=== PATIENT | female | born 1930 | race Caucasian/White ===

== ENCOUNTER 2018-02-06 09:53 | Emergency (ER) | payer MEDICARE, MEDICAID ==
[~2018-02-06] VITALS: Ht 139.7 cm; Wt 64.8 kg
[~2018-02-06 09:53] MED LIST: CARVEDILOL; LIPITOR; LOSARTAN; PLAVIX; RENAGEL
[2018-02-06 10:20] VITALS: BP 166/93
== END 2018-02-06 14:26 | disposition left against medical advice (07) ==
LOC: ER 10:38
DX: Z53.21 Procedure and treatment not carried out due to patient leaving prior to being seen by health care provider (principal)

== ENCOUNTER 2018-02-26 12:51 | Inpatient (IN) | payer MEDICARE, MEDICAID ==
[~2018-02-26] VITALS: Ht 139.7 cm; Wt 31.4 kg
[2018-02-26 13:30] LABS: BASOPHILS % 0.8 % (0.0-2.0); EOSINOPHILS % 1.4 % (0.0-5.0); HEMATOCRIT. 29.7 % (36.0-48.0); HEMOGLOBIN. 9.8 g/dL (12.0-16.0); LYMPHOCYTES % 12.9 % (20.0-50.0); MEAN CORPUSCULAR HEMOGLOBIN 32.8 pg (28.0-32.0); MEAN CORPUSCULAR VOLUME 99.6 fL (81.0-99.0); MEAN PLATELET VOLUME 8.1 fl (7.4-10.4); MONOCYTES % 5.1 % (2.0-8.0); NEUTROPHILS % 79.8 % (40.0-76.0); PLATELET 205 x1000/uL (130-400); RED BLOOD CELL COUNT 2.98 mill/uL (4.2-5.4); RED CELL DISTRIBUTION WIDTH 16.9 % (11.6-14.6)
[2018-02-26 13:38] LABS: CHLORIDE 97 mEq/L (98-107); INR 1.2; PROTHROMBIN TIME 12.7 sec (9.4-11.6)
[2018-02-26 17:00] VITALS: BP 158/72
[2018-02-26] MEDS ORDERED: APIX2.5T PO (17:13)
[2018-02-26] MEDS ORDERED: ASPI-1159 PO (17:13)
[2018-02-26] MEDS ORDERED: LOSA25TA12 PO (17:13)
[2018-02-26 17:23] VITALS: BP 158/72
[2018-02-26] MEDS ORDERED: ZOLPIDEM TARTRATE 5MG TABLET PO PRN (18:15)
[2018-02-26] MEDS ORDERED: MAGNESIUM/ALUMINUM HYDROXIDE/SIMETHICONE 30ML UDC PO PRN (18:15)
[2018-02-26] MEDS ORDERED: MAGNESIUM HYDROXIDE 400MG/5ML 30ML UDC PO PRN (18:15)
[2018-02-26] MEDS ORDERED: CLONIDINE 0.1MG TABLET PO PRN (18:15)
[2018-02-26] MEDS ORDERED: ACETAMINOPHEN 325MG TABLET PO PRN (18:15)
[2018-02-26] MEDS ORDERED: DIPHENHYDRAMINE 50MG/ML VIAL IV PRN (18:15)
[2018-02-26] MEDS ORDERED: ONDANSETRON 4MG ODT PO PRN (18:31)
[2018-02-26 19:58] VITALS: BP 167/68
[2018-02-26] MEDS: SODIUM CHLORIDE 0.9% INJ 3ML FLUSH IVF SCH (20:58)
[2018-02-26] MEDS ORDERED: DIGOXIN 500MCG/2ML AMP IV NR (23:30)
[2018-02-27 00:07] VITALS: BP 116/65
[2018-02-27 04:00] VITALS: BP 150/53
[2018-02-27] MEDS: SODIUM CHLORIDE 0.9% INJ 3ML FLUSH IVF SCH ×2 (05:34→21:36)
[2018-02-27 08:00] VITALS: BP 166/64
[2018-02-27] MEDS: ASPIRIN 81MG EC TABLET PO SCH (08:34)
[2018-02-27] MEDS: LOSARTAN POTASSIUM 25 MG TABLET PO SCH (08:34)
[2018-02-27] MEDS: APIXABAN 2.5 MG TABLET PO SCH ×2 (08:34→17:18)
[2018-02-27 10:21] LABS: T4 FREE 1.58 ng/dL (0.76-1.46)
[2018-02-27 16:00] VITALS: BP 136/48
[2018-02-27 16:19] LABS: CREATINE KINASE MB FRACTION 1.8 ng/mL (0.5-3.6)
[2018-02-27] MEDS: DIGOXIN 500MCG/2ML AMP IV SCH (17:18)
[2018-02-27 20:00] VITALS: BP 150/42
[2018-02-28] VITALS: BP 144/45
[2018-02-28 00:02] LABS: CREATINE KINASE MB FRACTION 2.9 ng/mL (0.5-3.6)
[2018-02-28 04:00] VITALS: BP 151/61
[2018-02-28] MEDS: SODIUM CHLORIDE 0.9% INJ 3ML FLUSH IVF SCH ×3 (05:45→21:40)
[2018-02-28 08:00] VITALS: BP 162/59
[2018-02-28 08:52] LABS: CREATINE KINASE MB FRACTION 1.3 ng/mL (0.5-3.6)
[2018-02-28] MEDS: APIXABAN 2.5 MG TABLET PO SCH ×3 (08:56→18:47)
[2018-02-28] MEDS: ASPIRIN 81MG EC TABLET PO SCH (08:56)
[2018-02-28] MEDS: LOSARTAN POTASSIUM 25 MG TABLET PO SCH ×2 (08:56→21:39)
[2018-02-28 12:00] VITALS: BP 163/57
[2018-02-28 16:00] VITALS: BP 155/45
[2018-02-28] MEDS: DIGOXIN 500MCG/2ML AMP IV SCH (17:29)
[2018-02-28 20:00] VITALS: BP 170/56
[2018-02-28] MEDS ORDERED: EPOETIN ALFA 4000UNITS/ML VIAL SUBCUT SCH (21:00)
[2018-03-01] VITALS: BP 160/49
[2018-03-01 04:00] VITALS: BP 167/60
[2018-03-01] MEDS: SODIUM CHLORIDE 0.9% INJ 3ML FLUSH IVF SCH ×2 (06:25→14:47)
[2018-03-01] MEDS: LOSARTAN POTASSIUM 25 MG TABLET PO SCH (08:31)
[2018-03-01] MEDS: APIXABAN 2.5 MG TABLET PO SCH (08:32)
[2018-03-01] MEDS: ASPIRIN 81MG EC TABLET PO SCH (08:59)
[2018-03-01 09:09] VITALS: BP 175/59
[2018-03-01 12:45] VITALS: BP 161/75
[2018-03-01 13:18] VITALS: BP 161/75
[2018-03-01] MEDS ORDERED: HYDRALAZINE HCL 50MG TABLET PO SCH (14:00)
[2018-03-01] MEDS ORDERED: CARVEDILOL 3.125 MG TABLET PO SCH (21:00)
== END 2018-03-01 15:35 | disposition home health service (06) | DRG 291 ==
LOC: ER 12:54 → EDBEDREQ 14:37 → EDBEDREQTM 14:37 → ENRESERV 16:05 → OBSVTOIN 17:37 → 6WST 17:37
PROVIDERS: ADMIT Internal Medicine; ATTEND Internal Medicine
PROC: 5A1D70Z Performance of Urinary Filtration, Intermittent, Less than 6 Hours Per Day (ICD-10-PCS; principal; 2018-02-26)
PROC: 5A1D70Z Performance of Urinary Filtration, Intermittent, Less than 6 Hours Per Day (ICD-10-PCS; 2018-02-28)
DX: I13.2 Hypertensive heart and chronic kidney disease with heart failure and with stage 5 chronic kidney disease, or end stage renal disease (principal); N18.6 End stage renal disease; I50.43 Acute on chronic combined systolic (congestive) and diastolic (congestive) heart failure; R07.89 Other chest pain; I48.0 Paroxysmal atrial fibrillation; D63.8 Anemia in other chronic diseases classified elsewhere; I25.10 Atherosclerotic heart disease of native coronary artery without angina pectoris; E78.5 Hyperlipidemia, unspecified; I42.9 Cardiomyopathy, unspecified; J44.9 Chronic obstructive pulmonary disease, unspecified; Z60.2 Problems related to living alone; Z99.2 Dependence on renal dialysis; Z79.899 Other long term (current) drug therapy; Z98.42 Cataract extraction status, left eye; Z98.41 Cataract extraction status, right eye; Z98.61 Coronary angioplasty status; Z79.01 Long term (current) use of anticoagulants; Z79.82 Long term (current) use of aspirin
CPT/HCPCS: 36415; 71045; 80053; 80061; 82550; 82553; 83036; 83880; 84439; 84443; 84484; 85025; 85379; 85610; 93005; 93306; 99285; J0885; J1160; J7030

== ENCOUNTER 2018-08-31 10:56 | Inpatient (IN) | payer MEDICARE, MEDICAID ==
[~2018-08-31] VITALS: Ht 139.7 cm; Wt 29.5 kg
[~2018-08-31 10:56] MED LIST changes: +APIX2.5T PO; +APIXABAN 2.5 MG TABLET PO SCH; +ASPI-1159 PO; -CARVEDILOL; -LIPITOR; -LOSARTAN; -PLAVIX; -RENAGEL
[2018-08-31] MEDS ORDERED: SODIUM CHLORIDE 0.9% 1,000 ML IV ONE ×2 (11:15→13:15)
[2018-08-31 12:20] LABS: HEMATOCRIT. 41.4 % (36.0-48.0); HEMOGLOBIN. 13.5 g/dL (12.0-16.0); MEAN CORPUSCULAR HEMOGLOBIN 34.2 pg (28.0-32.0); RED BLOOD CELL COUNT 3.94 mill/uL (4.2-5.4); RED CELL DISTRIBUTION WIDTH 16.7 % (11.6-14.6)
[2018-08-31 12:23] LABS: INR 1.1; PROTHROMBIN TIME 10.9 sec (9.1-11.1)
[2018-08-31 12:24] LABS: CHLORIDE 94 mEq/L (98-107)
[2018-08-31 12:49] LABS: PLATELET 175 x1000/uL (130-400)
[2018-08-31 12:53] LABS: PLATELET ESTIMATE NORMAL
[2018-08-31] MEDS ORDERED: PIPERACILLIN/TAZOBACTAM 3.375GM/50ML PREMIX IV ONE (13:15)
[2018-08-31] MEDS ORDERED: CEFTRIAXONE 1 G PREMIX 50 ML IV ONE (13:15)
[2018-08-31] MEDS ORDERED: VANCOMYCIN 1 G PREMIX 200 ML IV SCH (13:15)
[2018-08-31] MEDS ORDERED: DOCUSATE SODIUM 100MG CAPSULE PO PRN (14:15)
[2018-08-31] MEDS ORDERED: MAGNESIUM/ALUMINUM HYDROXIDE/SIMETHICONE 30ML UDC PO PRN (14:15)
[2018-08-31] MEDS ORDERED: GUAIFENESIN 200MG/10ML SUGAR FREE UDC PO PRN (14:15)
[2018-08-31] MEDS ORDERED: DIPHENHYDRAMINE 50MG/ML VIAL IV PRN (14:15)
[2018-08-31] MEDS ORDERED: ONDANSETRON HCL 4MG/2ML INJ IV PRN (14:15)
[2018-08-31] MEDS ORDERED: ACETAMINOPHEN 325MG TABLET PO PRN (14:15)
[2018-08-31] MEDS ORDERED: CLONIDINE 0.1MG TABLET PO PRN (14:15)
[2018-08-31] MEDS ORDERED: PIPERACILLIN/TAZ 3.375G PREMIX 50 ML IV NR (16:15)
[2018-08-31] MEDS ORDERED: MECLIZINE 25MG TABLET PO PRN (22:30)
[2018-08-31 23:00] VITALS: BP 115/58
[2018-08-31] MEDS ORDERED: CARV3.1242 PO (23:58)
[2018-09-01 04:00] VITALS: BP 126/49
[2018-09-01 08:00] VITALS: BP 128/55
[2018-09-01 08:34] VITALS: BP 128/55
[2018-09-01] MEDS: LOSARTAN POTASSIUM 50 MG TABLET PO SCH (09:00)
[2018-09-01 12:00] VITALS: BP 123/52
[2018-09-01 16:00] VITALS: BP 130/57
[2018-09-01] MEDS: APIXABAN 2.5 MG TABLET PO SCH (17:45)
[2018-09-01 20:00] VITALS: BP 149/65
[2018-09-01] MEDS: ATORVASTATIN CALCIUM 10MG TABLET PO SCH (20:43)
[2018-09-02] VITALS: BP 142/48
[2018-09-02 04:00] VITALS: BP 91/63
[2018-09-02 07:02] LABS: BASOPHILS % 0.2 % (0.0-2.0); EOSINOPHILS % 0.6 % (0.0-5.0); HEMATOCRIT. 38.7 % (36.0-48.0); HEMOGLOBIN. 12.8 g/dL (12.0-16.0); MEAN CORPUSCULAR HEMOGLOBIN 34.6 pg (28.0-32.0); MEAN CORPUSCULAR VOLUME 105.1 fL (81.0-99.0); MEAN PLATELET VOLUME 8.6 fl (7.4-10.4); MONOCYTES % 7.7 % (2.0-8.0); NEUTROPHILS % 81.5 % (40.0-76.0); PLATELET 194 x1000/uL (130-400); RED BLOOD CELL COUNT 3.68 mill/uL (4.2-5.4); RED CELL DISTRIBUTION WIDTH 16.7 % (11.6-14.6)
[2018-09-02 07:12] LABS: CHLORIDE 100 mEq/L (98-107)
[2018-09-02 08:00] VITALS: BP 142/66
[2018-09-02] MEDS: APIXABAN 2.5 MG TABLET PO SCH ×2 (08:36→16:57)
[2018-09-02] MEDS ORDERED: DILTIAZEM HCL 30MG TABLET PO PRN (09:00)
[2018-09-02] MEDS: LOSARTAN POTASSIUM 50 MG TABLET PO SCH (09:00)
[2018-09-02 12:00] VITALS: BP 152/83
[2018-09-02 16:00] VITALS: BP 157/78
[2018-09-02] MEDS ORDERED: DILTIAZEM HCL 5MG/ML 5ML VIAL IV NR (19:15)
[2018-09-02 20:00] VITALS: BP 120/46
[2018-09-02] MEDS: ATORVASTATIN CALCIUM 10MG TABLET PO SCH (20:44)
[2018-09-03] VITALS: BP 128/50
[2018-09-03 04:00] VITALS: BP 145/68
[2018-09-03 08:00] VITALS: BP 117/55
[2018-09-03 08:40] VITALS: BP 117/55
[2018-09-03] MEDS: LOSARTAN POTASSIUM 50 MG TABLET PO SCH (09:00)
[2018-09-03] MEDS: APIXABAN 2.5 MG TABLET PO SCH (09:04)
[2018-09-03] MEDS ORDERED: DILTIAZEM HCL 5MG/ML 5ML VIAL IV ONE (09:09)
[2018-09-03 10:59] VITALS: BP 117/55
== END 2018-09-03 12:16 | disposition home health service (06) | DRG 291 ==
LOC: ER 10:56 → 6WST 13:10 → EDBEDREQTM 13:12 → EDBEDREQ 13:12 → ENRESERV 20:22 → 6WST 23:05
PROVIDERS: ADMIT Hospitalist; ATTEND Hospitalist
PROC: 5A1D70Z Performance of Urinary Filtration, Intermittent, Less than 6 Hours Per Day (ICD-10-PCS; principal; 2018-09-01)
DX: I50.43 Acute on chronic combined systolic (congestive) and diastolic (congestive) heart failure (principal); N18.6 End stage renal disease; I13.2 Hypertensive heart and chronic kidney disease with heart failure and with stage 5 chronic kidney disease, or end stage renal disease; D68.59 Other primary thrombophilia; E87.2 Acidosis; I95.1 Orthostatic hypotension; I48.0 Paroxysmal atrial fibrillation; D63.1 Anemia in chronic kidney disease; I25.10 Atherosclerotic heart disease of native coronary artery without angina pectoris; I95.3 Hypotension of hemodialysis; J44.9 Chronic obstructive pulmonary disease, unspecified; Z95.5 Presence of coronary angioplasty implant and graft; Z82.49 Family history of ischemic heart disease and other diseases of the circulatory system; Z99.2 Dependence on renal dialysis; Z79.82 Long term (current) use of aspirin; Z79.899 Other long term (current) drug therapy
CPT/HCPCS: 36415; 71045; 80048; 83605; 83880; 84443; 84484; 93005; 93880; 93970; 96361; 96365; 96366; 99285; J2543; J3370; J3490; J7030

== ENCOUNTER 2019-02-06 04:22 | Inpatient (IN) | payer MEDICARE, MEDICAID ==
[2019-02-06] VITALS (7 sets, daily range): BP systolic 96–145; BP diastolic 38–93
[~2019-02-06] VITALS: Ht 144.8 cm; Wt 29.0 kg
[~2019-02-06 04:22] MED LIST changes: -APIXABAN 2.5 MG TABLET PO SCH; -ASPI-1159 PO; +ASPI-1393 PO; +CARV3.1242 PO
[2019-02-06] MEDS ORDERED: FAMOTIDINE 20MG/2ML VIAL IV STA (05:05)
[2019-02-06] MEDS ORDERED: ONDANSETRON HCL 4MG/2ML INJ IV STA (05:05)
[2019-02-06] MEDS ORDERED: MORPHINE SULFATE 4 MG/ML CPJ (NOT FOR IM USE) IV STA (05:05)
[2019-02-06] MEDS ORDERED: DILTIAZEM HCL 5MG/ML 5ML VIAL IV ONE (05:15)
[2019-02-06 05:28] LABS: BASOPHILS % 0.6 % (0.0-2.0); HEMATOCRIT. 40.6 % (36.0-48.0); HEMOGLOBIN. 13.2 g/dL (12.0-16.0); LYMPHOCYTES % 17.7 % (20.0-50.0); MEAN CORPUSCULAR HEMOGLOBIN 32.2 pg (28.0-32.0); MEAN CORPUSCULAR VOLUME 99.4 fL (81.0-99.0); MEAN PLATELET VOLUME 8.7 fl (7.4-10.4); NEUTROPHILS % 74.7 % (40.0-76.0); PLATELET 142 x1000/uL (130-400); RED BLOOD CELL COUNT 4.08 mill/uL (4.2-5.4); RED CELL DISTRIBUTION WIDTH 16.5 % (11.6-14.6)
[2019-02-06 05:37] LABS: INR 1.1; PROTHROMBIN TIME 10.8 sec (9.6-11.0)
[2019-02-06 05:45] LABS: CHLORIDE 98 mEq/L (98-107)
[2019-02-06] MEDS ORDERED: MAGNESIUM/ALUMINUM HYDROXIDE/SIMETHICONE 30ML UDC PO PRN (08:15)
[2019-02-06] MEDS ORDERED: ONDANSETRON HCL 4MG/2ML INJ IV PRN (08:15)
[2019-02-06] MEDS ORDERED: DOCUSATE SODIUM 100MG CAPSULE PO PRN (08:15)
[2019-02-06] MEDS ORDERED: ENOXAPARIN 40MG/0.4ML SYR SUBCUT SCH (08:15)
[2019-02-06] MEDS ORDERED: ACETAMINOPHEN 325MG TABLET PO PRN (08:15)
[2019-02-06] MEDS ORDERED: DILTIAZEM HCL 30MG TABLET PO PRN (08:15)
[2019-02-06] MEDS ORDERED: HYDROCODONE/ACETAMINOPHEN 5/325MG TABLET PO PRN (08:15)
[2019-02-06] MEDS ORDERED: GUAIFENESIN 200MG/10ML SUGAR FREE UDC PO PRN (08:15)
[2019-02-06] MEDS ORDERED: HYDROMORPHONE HCL/PF 2MG/ML CPJ IV PRN (08:15)
[2019-02-06] MEDS ORDERED: CARVEDILOL 3.125 MG TABLET PO NR (10:30)
[2019-02-06] MEDS: APIXABAN 2.5 MG TABLET PO SCH ×2 (11:42→17:00)
[2019-02-07] VITALS (8 sets, daily range): BP systolic 100–133; BP diastolic 50–78
[2019-02-07 07:24] LABS: BASOPHILS % 0.4 % (0.0-2.0); HEMATOCRIT. 35.8 % (36.0-48.0); HEMOGLOBIN. 11.8 g/dL (12.0-16.0); LYMPHOCYTES % 15.6 % (20.0-50.0); MEAN CORPUSCULAR HEMOGLOBIN 32.9 pg (28.0-32.0); MEAN CORPUSCULAR VOLUME 99.5 fL (81.0-99.0); MEAN PLATELET VOLUME 9.7 fl (7.4-10.4); MONOCYTES % 11.1 % (2.0-8.0); NEUTROPHILS % 70.9 % (40.0-76.0); PLATELET 127 x1000/uL (130-400); RED CELL DISTRIBUTION WIDTH 16.4 % (11.6-14.6)
[2019-02-07 07:34] LABS: CHLORIDE 99 mEq/L (98-107)
[2019-02-07 07:55] LABS: CREATINE KINASE 57 IU/L (26-192)
[2019-02-07 07:56] LABS: T4 FREE 1.21 ng/dL (0.76-1.46)
[2019-02-07] MEDS: APIXABAN 2.5 MG TABLET PO SCH (09:27)
== END 2019-02-07 13:45 | disposition home or self-care (01) | DRG 291 ==
LOC: ER 04:22 → EDBEDREQTM 05:28 → EDBEDREQSVC 05:28 → EDBEDREQ 05:28 → 5EST 05:29 → ENRESERV 07:03 → CANRESERV 07:03 → ENRESERV 09:26
PROVIDERS: ADMIT Hospitalist; ATTEND Hospitalist
DX: I13.2 Hypertensive heart and chronic kidney disease with heart failure and with stage 5 chronic kidney disease, or end stage renal disease (principal); N18.6 End stage renal disease; I50.43 Acute on chronic combined systolic (congestive) and diastolic (congestive) heart failure; D68.59 Other primary thrombophilia; I48.0 Paroxysmal atrial fibrillation; I25.10 Atherosclerotic heart disease of native coronary artery without angina pectoris; E78.5 Hyperlipidemia, unspecified; D63.8 Anemia in other chronic diseases classified elsewhere; E87.5 Hyperkalemia; I95.3 Hypotension of hemodialysis; S52.021A Displaced fracture of olecranon process without intraarticular extension of right ulna, initial encounter for closed fracture; X58.XXXA Exposure to other specified factors, initial encounter; Z95.5 Presence of coronary angioplasty implant and graft; Z99.2 Dependence on renal dialysis; Z79.899 Other long term (current) drug therapy; Y93.89 Activity, other specified; Y92.89 Other specified places as the place of occurrence of the external cause; Y99.8 Other external cause status
CPT/HCPCS: 36415; 71045; 74176; 82550; 83605; 84145; 84439; 84443; 84484; 93005; 93306; 93970; 96374; 99285; J2270; J2405; J3490

== ENCOUNTER 2019-02-13 04:02 | Inpatient (IN) | payer MEDICARE, MEDICAID ==
[~2019-02-13] VITALS: Ht 139.7 cm; Wt 35.8 kg
[2019-02-13] MEDS ORDERED: ONDANSETRON HCL 4MG/2ML INJ IV STA (04:14)
[2019-02-13] MEDS ORDERED: DILTIAZEM HCL 5MG/ML 5ML VIAL IV ONE (04:15)
[2019-02-13 04:37] LABS: BASOPHILS % 0.7 % (0.0-2.0); HEMATOCRIT. 35.2 % (36.0-48.0); HEMOGLOBIN. 11.6 g/dL (12.0-16.0); LYMPHOCYTES % 15.9 % (20.0-50.0); MEAN CORPUSCULAR HEMOGLOBIN 32.4 pg (28.0-32.0); MEAN CORPUSCULAR VOLUME 98.6 fL (81.0-99.0); MEAN PLATELET VOLUME 8.7 fl (7.4-10.4); MONOCYTES % 6.4 % (2.0-8.0); PLATELET 144 x1000/uL (130-400); RED BLOOD CELL COUNT 3.57 mill/uL (4.2-5.4); RED CELL DISTRIBUTION WIDTH 16.6 % (11.6-14.6)
[2019-02-13 04:43] LABS: CHLORIDE 103 mEq/L (98-107)
[2019-02-13 04:46] LABS: PROTHROMBIN TIME 10.6 sec (9.6-11.0)
[2019-02-13] MEDS ORDERED: IPRATROPIUM/ALBUTEROL 0.5-3(2.5)MG/3ML NEB INH PRN (08:00)
[2019-02-13] MEDS ORDERED: GUAIFENESIN 200MG/10ML SUGAR FREE UDC PO PRN (08:00)
[2019-02-13] MEDS ORDERED: MAGNESIUM/ALUMINUM HYDROXIDE/SIMETHICONE 30ML UDC PO PRN (08:00)
[2019-02-13] MEDS ORDERED: ONDANSETRON HCL 4MG/2ML INJ IV PRN (08:00)
[2019-02-13] MEDS ORDERED: ZOLPIDEM TARTRATE 5MG TABLET PO PRN (08:00)
[2019-02-13] MEDS ORDERED: NITROGLYCERIN 0.4MG TABLET SL SL PRN (08:00)
[2019-02-13] MEDS ORDERED: ACETAMINOPHEN 325MG TABLET PO PRN (08:00)
[2019-02-13] MEDS ORDERED: CLONIDINE 0.1MG TABLET PO PRN (08:00)
[2019-02-13] MEDS ORDERED: DOCUSATE SODIUM 100MG CAPSULE PO PRN (08:00)
[2019-02-13 08:07] VITALS: BP 116/47
[2019-02-13 08:10] VITALS: BP 116/46
[2019-02-13] MEDS: FAMOTIDINE 20MG TABLET PO SCH ×2 (09:00→09:53)
[2019-02-13] MEDS: APIXABAN 2.5 MG TABLET PO SCH ×2 (09:00→18:46)
[2019-02-13] MEDS: ASPIRIN 81MG EC TABLET PO SCH ×2 (09:00→09:53)
[2019-02-13] MEDS: FOLIC ACID/VITAMIN B COMP W-C TABLET PO SCH ×2 (09:00→09:53)
[2019-02-13] MEDS: SEVELAMER CARBONATE 800 MG TABLET PO SCH ×3 (09:53→09:58)
[2019-02-13 12:00] VITALS: BP_SYST 119; BP_SYST 141; BP_DIAS 68; BP_DIAS 76
[2019-02-13] MEDS ORDERED: DILTIAZEM HCL 30MG TABLET PO SCH (12:00)
[2019-02-13] MEDS: CARVEDILOL 3.125 MG TABLET PO SCH ×2 (12:48→21:00)
[2019-02-13 16:00] VITALS: BP 114/81
[2019-02-13 16:06] LABS: CREATINE KINASE MB FRACTION 2.2 ng/mL (0.5-3.6)
[2019-02-13 19:23] VITALS: BP 130/58
[2019-02-14] VITALS (16 sets, daily range): BP systolic 89–145; BP diastolic 33–84
[2019-02-14] MEDS: TRAMADOL 50MG TABLET PO PRN ×2 (02:35→06:11)
[2019-02-14] MEDS: APIXABAN 2.5 MG TABLET PO SCH ×2 (06:11→17:45)
[2019-02-14] MEDS: SEVELAMER CARBONATE 800 MG TABLET PO SCH ×3 (08:46→17:20)
[2019-02-14] MEDS: FAMOTIDINE 20MG TABLET PO SCH (08:46)
[2019-02-14] MEDS: FOLIC ACID/VITAMIN B COMP W-C TABLET PO SCH (08:46)
[2019-02-14] MEDS: ASPIRIN 81MG EC TABLET PO SCH (08:47)
[2019-02-14 08:53] LABS: CREATINE KINASE MB FRACTION 2.9 ng/mL (0.5-3.6)
[2019-02-14] MEDS: CARVEDILOL 3.125 MG TABLET PO SCH ×2 (08:58→21:00)
[2019-02-14] MEDS ORDERED: DIGOXIN 500MCG/2ML AMP IV NR (09:00)
[2019-02-14] MEDS ORDERED: AMIODARONE HCL 900 MG in DEXT 5% WATER 482 ML IV SCH (10:00)
[2019-02-14] MEDS: AMIODARONE HCL 200 MG TABLET PO SCH (13:27)
[2019-02-14] MEDS ORDERED: APIXABAN 2.5 MG TABLET PO SCH (17:00)
[2019-02-14] MEDS ORDERED: CARVEDILOL 3.125 MG TABLET PO SCH (21:00)
[2019-02-14] MEDS ORDERED: AMIODARONE HCL 150 MG in DEXT 5% WATER 100 ML IV SCH (23:15)
[2019-02-15] VITALS (14 sets, daily range): BP systolic 90–159; BP diastolic 34–112
[2019-02-15] MEDS: APIXABAN 2.5 MG TABLET PO SCH ×2 (06:00→18:00)
[2019-02-15] MEDS: SEVELAMER CARBONATE 800 MG TABLET PO SCH ×3 (07:20→17:20)
[2019-02-15] MEDS: ASPIRIN 81MG EC TABLET PO SCH (08:59)
[2019-02-15] MEDS: CARVEDILOL 3.125 MG TABLET PO SCH ×2 (08:59→21:00)
[2019-02-15] MEDS: FOLIC ACID/VITAMIN B COMP W-C TABLET PO SCH (09:00)
[2019-02-15] MEDS: FAMOTIDINE 20MG TABLET PO SCH (09:00)
[2019-02-15] MEDS: AMIODARONE HCL 200 MG TABLET PO SCH (09:00)
[2019-02-16] VITALS (25 sets, daily range): BP systolic 86–178; BP diastolic 37–73
[2019-02-16] MEDS: APIXABAN 2.5 MG TABLET PO SCH ×2 (06:00→17:39)
[2019-02-16] MEDS: SEVELAMER CARBONATE 800 MG TABLET PO SCH ×3 (07:20→17:39)
[2019-02-16] MEDS: ASPIRIN 81MG EC TABLET PO SCH ×2 (09:00→12:41)
[2019-02-16] MEDS: FAMOTIDINE 20MG TABLET PO SCH ×2 (09:00→12:40)
[2019-02-16] MEDS: CARVEDILOL 3.125 MG TABLET PO SCH ×2 (09:00→21:00)
[2019-02-16] MEDS: FOLIC ACID/VITAMIN B COMP W-C TABLET PO SCH ×2 (09:00→12:40)
[2019-02-16] MEDS: AMIODARONE HCL 200 MG TABLET PO SCH ×2 (09:00→12:40)
[2019-02-16 15:11] LABS: BASOPHILS % 0.4 % (0.0-2.0); HEMATOCRIT. 28.1 % (36.0-48.0); HEMOGLOBIN. 9.3 g/dL (12.0-16.0); LYMPHOCYTES % 10.7 % (20.0-50.0); MEAN CORPUSCULAR HEMOGLOBIN 32.9 pg (28.0-32.0); MEAN CORPUSCULAR VOLUME 100.1 fL (81.0-99.0); MONOCYTES % 7.2 % (2.0-8.0); NEUTROPHILS % 81.7 % (40.0-76.0); PLATELET 104 x1000/uL (130-400); RED BLOOD CELL COUNT 2.81 mill/uL (4.2-5.4); RED CELL DISTRIBUTION WIDTH 17.1 % (11.6-14.6)
[2019-02-16] MEDS ORDERED: DIGOXIN 500MCG/2ML AMP IV NR (18:00)
[2019-02-16] MEDS ORDERED: DIGOXIN 125MCG TABLET PO SCH (18:00)
[2019-02-17] VITALS (13 sets, daily range): BP systolic 102–162; BP diastolic 35–112
[2019-02-17] MEDS: APIXABAN 2.5 MG TABLET PO SCH ×2 (06:00→17:05)
[2019-02-17] MEDS: SEVELAMER CARBONATE 800 MG TABLET PO SCH ×4 (07:20→16:24)
[2019-02-17] MEDS: AMIODARONE HCL 200 MG TABLET PO SCH (08:05)
[2019-02-17] MEDS: FOLIC ACID/VITAMIN B COMP W-C TABLET PO SCH ×2 (08:05→09:00)
[2019-02-17] MEDS: ASPIRIN 81MG EC TABLET PO SCH ×2 (08:05→09:00)
[2019-02-17] MEDS: FAMOTIDINE 20MG TABLET PO SCH (08:05)
[2019-02-17] MEDS: CARVEDILOL 3.125 MG TABLET PO SCH ×2 (08:05→21:00)
[2019-02-18] VITALS (13 sets, daily range): BP systolic 127–194; BP diastolic 46–88
[2019-02-18] MEDS: APIXABAN 2.5 MG TABLET PO SCH ×2 (05:12→17:23)
[2019-02-18] MEDS: ASPIRIN 81MG EC TABLET PO SCH (09:00)
[2019-02-18] MEDS: FAMOTIDINE 20MG TABLET PO SCH (09:00)
[2019-02-18] MEDS: FOLIC ACID/VITAMIN B COMP W-C TABLET PO SCH (09:03)
[2019-02-18] MEDS: SEVELAMER CARBONATE 800 MG TABLET PO SCH ×3 (09:03→17:18)
[2019-02-18] MEDS: AMIODARONE HCL 200 MG TABLET PO SCH (09:08)
[2019-02-18] MEDS: CARVEDILOL 3.125 MG TABLET PO SCH ×2 (09:08→21:14)
[2019-02-18] MEDS ORDERED: EPOETIN ALFA 4000UNITS/ML VIAL SUBCUT NR (21:00)
[2019-02-18] MEDS: HYDRALAZINE HCL 50MG TABLET PO SCH (21:14)
[2019-02-19] VITALS (10 sets, daily range): BP systolic 130–174; BP diastolic 58–84
[2019-02-19] MEDS: APIXABAN 2.5 MG TABLET PO SCH ×2 (06:08→17:46)
[2019-02-19] MEDS: SEVELAMER CARBONATE 800 MG TABLET PO SCH ×3 (07:20→17:20)
[2019-02-19] MEDS: ASPIRIN 81MG EC TABLET PO SCH (09:00)
[2019-02-19] MEDS: AMIODARONE HCL 200 MG TABLET PO SCH ×2 (09:00→14:13)
[2019-02-19] MEDS: CARVEDILOL 3.125 MG TABLET PO SCH ×2 (09:00→21:45)
[2019-02-19] MEDS: HYDRALAZINE HCL 50MG TABLET PO SCH ×2 (09:00→21:45)
[2019-02-19] MEDS: FOLIC ACID/VITAMIN B COMP W-C TABLET PO SCH (09:00)
[2019-02-19] MEDS: FAMOTIDINE 20MG TABLET PO SCH (09:00)
[2019-02-20] VITALS (7 sets, daily range): BP systolic 106–150; BP diastolic 39–86
[2019-02-20] MEDS: APIXABAN 2.5 MG TABLET PO SCH (06:11)
[2019-02-20] MEDS: ASPIRIN 81MG EC TABLET PO SCH (09:24)
[2019-02-20] MEDS: HYDRALAZINE HCL 50MG TABLET PO SCH (09:25)
[2019-02-20] MEDS: CARVEDILOL 3.125 MG TABLET PO SCH (09:25)
[2019-02-20] MEDS: FOLIC ACID/VITAMIN B COMP W-C TABLET PO SCH (09:26)
[2019-02-20] MEDS: FAMOTIDINE 20MG TABLET PO SCH (09:26)
[2019-02-20] MEDS: SEVELAMER CARBONATE 800 MG TABLET PO SCH ×2 (09:29→15:27)
[2019-02-20] MEDS: AMIODARONE HCL 200 MG TABLET PO SCH (15:27)
== END 2019-02-20 19:12 | DRG 308 ==
LOC: ER 04:02 → 7WST 05:37 → EDBEDREQ 05:45 → EDBEDREQTM 05:45 → ENRESERV 07:01 → SUPCPDRO 07:47 → 3WST 02-14 10:55 → 7WST 02-19 18:20 → 6WST 02-19 20:21
PROVIDERS: ADMIT Internal Medicine; ATTEND Internal Medicine
PROC: 5A1D70Z Performance of Urinary Filtration, Intermittent, Less than 6 Hours Per Day (ICD-10-PCS; 2019-02-13)
PROC: 5A1D70Z Performance of Urinary Filtration, Intermittent, Less than 6 Hours Per Day (ICD-10-PCS; 2019-02-14)
PROC: 5A1D70Z Performance of Urinary Filtration, Intermittent, Less than 6 Hours Per Day (ICD-10-PCS; 2019-02-16)
PROC: 5A1D70Z Performance of Urinary Filtration, Intermittent, Less than 6 Hours Per Day (ICD-10-PCS; principal; 2019-02-19)
DX: I48.0 Paroxysmal atrial fibrillation (principal); N18.6 End stage renal disease; I50.43 Acute on chronic combined systolic (congestive) and diastolic (congestive) heart failure; I13.2 Hypertensive heart and chronic kidney disease with heart failure and with stage 5 chronic kidney disease, or end stage renal disease; E44.1 Mild protein-calorie malnutrition; Z68.1 Body mass index [BMI] 19.9 or less, adult; I42.9 Cardiomyopathy, unspecified; I47.1 Supraventricular tachycardia; D63.8 Anemia in other chronic diseases classified elsewhere; D69.6 Thrombocytopenia, unspecified; I25.10 Atherosclerotic heart disease of native coronary artery without angina pectoris; I27.20 Pulmonary hypertension, unspecified; R26.9 Unspecified abnormalities of gait and mobility; Z60.2 Problems related to living alone; I34.0 Nonrheumatic mitral (valve) insufficiency; Z79.01 Long term (current) use of anticoagulants; Z82.49 Family history of ischemic heart disease and other diseases of the circulatory system; Z99.2 Dependence on renal dialysis; Z79.82 Long term (current) use of aspirin; Z79.899 Other long term (current) drug therapy; Z87.81 Personal history of (healed) traumatic fracture
CPT/HCPCS: 36415; 71045; 80048; 80061; 82550; 82553; 83036; 83880; 84484; 93005; 93970; 96374; 97162; 97164; 97166; 97168; 97530; 97535; 99291; C1893; J0282; J0885; J1160; J2405; J3490; J7060

== ENCOUNTER 2019-02-20 19:00 | Inpatient (IN) | payer MEDICARE, MEDICAID ==
[~2019-02-20] VITALS: Ht 139.7 cm; Wt 35.8 kg
[2019-02-20 20:00] VITALS: BP 150/45
[2019-02-20] MEDS ORDERED: ONDANSETRON HCL 4MG/2ML INJ IV PRN (20:15)
[2019-02-20] MEDS ORDERED: NITROGLYCERIN 0.4MG TABLET SL SL PRN (20:15)
[2019-02-20] MEDS ORDERED: DOCUSATE SODIUM 100MG CAPSULE PO PRN (20:15)
[2019-02-20] MEDS ORDERED: ACETAMINOPHEN 325MG TABLET PO PRN (20:15)
[2019-02-20] MEDS ORDERED: GUAIFENESIN 200MG/10ML SUGAR FREE UDC PO PRN (20:15)
[2019-02-20] MEDS ORDERED: CLONIDINE 0.1MG TABLET PO PRN (20:15)
[2019-02-20] MEDS ORDERED: MAGNESIUM/ALUMINUM HYDROXIDE/SIMETHICONE 30ML UDC PO PRN (20:15)
[2019-02-20] MEDS ORDERED: IPRATROPIUM/ALBUTEROL 0.5-3(2.5)MG/3ML NEB HHN PRN (20:15)
[2019-02-20] MEDS: CARVEDILOL 3.125 MG TABLET PO SCH ×2 (21:00→22:17)
[2019-02-20] MEDS: HYDRALAZINE HCL 50MG TABLET PO SCH (21:00)
[2019-02-20] MEDS: APIXABAN 2.5 MG TABLET PO SCH (22:00)
[2019-02-21] MEDS: APIXABAN 2.5 MG TABLET PO SCH ×3 (05:45→18:06)
[2019-02-21] MEDS ORDERED: APIXABAN 2.5 MG TABLET PO SCH (06:00)
[2019-02-21 07:22] LABS: BASOPHILS % 0.5 % (0.0-2.0); EOSINOPHILS % 0.8 % (0.0-5.0); HEMATOCRIT. 35.2 % (36.0-48.0); HEMOGLOBIN. 11.3 g/dL (12.0-16.0); LYMPHOCYTES % 17.3 % (20.0-50.0); MEAN CORPUSCULAR HEMOGLOBIN 32.3 pg (28.0-32.0); MEAN CORPUSCULAR VOLUME 100.3 fL (81.0-99.0); MEAN PLATELET VOLUME 8.9 fl (7.4-10.4); MONOCYTES % 9.8 % (2.0-8.0); NEUTROPHILS % 71.6 % (40.0-76.0); PLATELET 120 x1000/uL (130-400); RED BLOOD CELL COUNT 3.51 mill/uL (4.2-5.4); RED CELL DISTRIBUTION WIDTH 17.4 % (11.6-14.6)
[2019-02-21 07:34] LABS: CHLORIDE 104 mEq/L (98-107)
[2019-02-21 07:49] VITALS: BP 161/53
[2019-02-21] MEDS: SEVELAMER CARBONATE 800 MG TABLET PO SCH ×5 (08:27→18:05)
[2019-02-21] MEDS: ASPIRIN 81MG TABLET PO SCH ×2 (08:28→08:36)
[2019-02-21] MEDS: HYDRALAZINE HCL 50MG TABLET PO SCH ×3 (08:28→20:45)
[2019-02-21] MEDS: FAMOTIDINE 20MG TABLET PO SCH ×2 (08:28→08:36)
[2019-02-21] MEDS: AMIODARONE HCL 200 MG TABLET PO SCH ×2 (08:28→08:36)
[2019-02-21] MEDS: FOLIC ACID/VITAMIN B COMP W-C TABLET PO SCH ×2 (08:31→08:36)
[2019-02-21] MEDS: CARVEDILOL 3.125 MG TABLET PO SCH ×3 (08:31→20:45)
[2019-02-21] MEDS: SODIUM POLYSTYRENE SULFONATE 15 G/60 ML BOT PO NR ×2 (10:04→10:08)
[2019-02-21 20:00] VITALS: BP 124/30
[2019-02-21] MEDS: MIRTAZAPINE 15MG TABLET PO SCH (20:45)
[2019-02-22] MEDS: APIXABAN 2.5 MG TABLET PO SCH ×2 (06:09→17:10)
[2019-02-22 07:55] VITALS: BP 91/59
[2019-02-22 07:57] VITALS: BP 91/59
[2019-02-22] MEDS: FOLIC ACID/VITAMIN B COMP W-C TABLET PO SCH (09:00)
[2019-02-22] MEDS: CARVEDILOL 3.125 MG TABLET PO SCH ×2 (09:00→20:08)
[2019-02-22] MEDS: SEVELAMER CARBONATE 800 MG TABLET PO SCH ×4 (09:00→17:00)
[2019-02-22] MEDS: HYDRALAZINE HCL 50MG TABLET PO SCH ×2 (09:00→20:08)
[2019-02-22] MEDS: FAMOTIDINE 20MG TABLET PO SCH (09:44)
[2019-02-22] MEDS: ASPIRIN 81MG TABLET PO SCH (09:44)
[2019-02-22] MEDS: AMIODARONE HCL 200 MG TABLET PO SCH (09:45)
[2019-02-22 20:00] VITALS: BP 101/38
[2019-02-22] MEDS: MIRTAZAPINE 15MG TABLET PO SCH (20:09)
[2019-02-23] MEDS: APIXABAN 2.5 MG TABLET PO SCH ×3 (05:48→17:19)
[2019-02-23 07:49] LABS: BASOPHILS % 0.7 % (0.0-2.0); EOSINOPHILS % 2.2 % (0.0-5.0); HEMATOCRIT. 36.9 % (36.0-48.0); HEMOGLOBIN. 11.8 g/dL (12.0-16.0); LYMPHOCYTES % 18.7 % (20.0-50.0); MEAN CORPUSCULAR HEMOGLOBIN 32.2 pg (28.0-32.0); MEAN CORPUSCULAR VOLUME 100.8 fL (81.0-99.0); MEAN PLATELET VOLUME 8.6 fl (7.4-10.4); MONOCYTES % 9.1 % (2.0-8.0); NEUTROPHILS % 69.3 % (40.0-76.0); PLATELET 121 x1000/uL (130-400); RED BLOOD CELL COUNT 3.67 mill/uL (4.2-5.4)
[2019-02-23 08:00] VITALS: BP 148/52
[2019-02-23 08:09] LABS: PHOSPHORUS 5.4 mg/dL (2.5-4.9)
[2019-02-23] MEDS: AMIODARONE HCL 200 MG TABLET PO SCH ×2 (08:41→09:00)
[2019-02-23] MEDS: CARVEDILOL 3.125 MG TABLET PO SCH ×2 (08:42→20:44)
[2019-02-23] MEDS: FAMOTIDINE 20MG TABLET PO SCH ×2 (08:42→09:00)
[2019-02-23] MEDS: HYDRALAZINE HCL 50MG TABLET PO SCH ×2 (08:42→20:44)
[2019-02-23] MEDS: FOLIC ACID/VITAMIN B COMP W-C TABLET PO SCH ×2 (08:43→09:00)
[2019-02-23] MEDS: ASPIRIN 81MG TABLET PO SCH (08:44)
[2019-02-23] MEDS: SEVELAMER CARBONATE 800 MG TABLET PO SCH ×3 (08:44→16:36)
[2019-02-23 10:02] LABS: FOLIC ACID (FOLATE) SERUM 9.4 ng/mL (>5.38)
[2019-02-23 20:00] VITALS: BP 127/48
[2019-02-23] MEDS: MIRTAZAPINE 15MG TABLET PO SCH (20:45)
[2019-02-24] MEDS: APIXABAN 2.5 MG TABLET PO SCH (06:00)
[2019-02-24 08:00] VITALS: BP 111/46
[2019-02-24] MEDS: ASPIRIN 81MG TABLET PO SCH (08:44)
[2019-02-24] MEDS: FOLIC ACID/VITAMIN B COMP W-C TABLET PO SCH (08:44)
[2019-02-24] MEDS: SEVELAMER CARBONATE 800 MG TABLET PO SCH ×2 (08:44→12:22)
[2019-02-24] MEDS: AMIODARONE HCL 200 MG TABLET PO SCH (08:44)
[2019-02-24] MEDS: CARVEDILOL 3.125 MG TABLET PO SCH (08:45)
[2019-02-24] MEDS: FAMOTIDINE 20MG TABLET PO SCH (08:46)
[2019-02-24] MEDS: HYDRALAZINE HCL 50MG TABLET PO SCH (08:46)
[2019-02-24 15:23] VITALS: BP 111/46
[2019-02-26 19:11] LABS: 25-HYDROXY VITAMIN D3 32 ng/mL (.)
== END 2019-02-24 16:03 | disposition home or self-care (01) | DRG 291 ==
PROVIDERS: ADMIT Physical Medicine & Rehabilitation Spinal Cord Injury Medicine; ATTEND Internal Medicine
DX: I13.2 Hypertensive heart and chronic kidney disease with heart failure and with stage 5 chronic kidney disease, or end stage renal disease (principal); N18.6 End stage renal disease; E44.0 Moderate protein-calorie malnutrition; Z68.1 Body mass index [BMI] 19.9 or less, adult; D63.8 Anemia in other chronic diseases classified elsewhere; I42.9 Cardiomyopathy, unspecified; D69.6 Thrombocytopenia, unspecified; E87.5 Hyperkalemia; F06.8 Other specified mental disorders due to known physiological condition; I48.91 Unspecified atrial fibrillation; I50.9 Heart failure, unspecified; Z82.49 Family history of ischemic heart disease and other diseases of the circulatory system; Z99.2 Dependence on renal dialysis; R53.81 Other malaise
CPT/HCPCS: 36415; 80048; 82306; 82607; 82728; 82746; 83540; 83550; 83735; 84100; 84134; 84443; 92523; 93970; 97110; 97116; 97162; 97166; 97530; 97535

== ENCOUNTER 2019-06-07 08:52 | Inpatient (IN) | payer MEDICARE, MEDICAID ==
[2019-06-07] VITALS (7 sets, daily range): BP systolic 96–141; BP diastolic 38–75
[~2019-06-07] VITALS: Ht 152.4 cm; Wt 42.2 kg
[2019-06-07] MEDS ORDERED: MORPHINE SULFATE 4 MG/ML CPJ (NOT FOR IM USE) IV STA (09:22)
[2019-06-07] MEDS ORDERED: ONDANSETRON HCL 4MG/2ML INJ IV STA (09:22)
[2019-06-07 10:00] LABS: HEMATOCRIT. 30.5 % (36.0-48.0); MEAN CORPUSCULAR HEMOGLOBIN 35.3 pg (28.0-32.0); MEAN CORPUSCULAR VOLUME 107.9 fL (81.0-99.0); MEAN PLATELET VOLUME 8.5 fl (7.4-10.4); PLATELET 171 x1000/uL (130-400); RED BLOOD CELL COUNT 2.83 mill/uL (4.2-5.4); RED CELL DISTRIBUTION WIDTH 15.8 % (11.6-14.6)
[2019-06-07] MEDS ORDERED: DIPHENHYDRAMINE 12.5MG/5ML UDC PO ONE (10:00)
[2019-06-07 10:07] LABS: CHLORIDE 102 mEq/L (98-107)
[2019-06-07 10:08] LABS: INR 1.1; PROTHROMBIN TIME 11.4 sec (9.6-11.0)
[2019-06-07 10:30] LABS: PLATELET ESTIMATE NORMAL
[2019-06-07] MEDS ORDERED: INSULIN REGULAR (HUMULIN R) 300UNITS/3ML IV ONE (10:30)
[2019-06-07] MEDS ORDERED: CALCIUM CHLORIDE 1GM/10ML SYR IV ONE (10:30)
[2019-06-07] MEDS ORDERED: SODIUM CHLORIDE 0.9% 1000ML BAG (SEPSIS BOLUS) IV ONE (10:30)
[2019-06-07] MEDS ORDERED: DEXTROSE 50% WATER 50ML SYRINGE IV ONE ×3 (10:30→12:00)
[2019-06-07] MEDS ORDERED: SODIUM BICARBONATE 8.4% 1 MEQ/ML 50ML SYR IV ONE (10:30)
[2019-06-07] MEDS ORDERED: PIPERACILLIN/TAZ 3.375G PREMIX 50 ML IV ONE (10:30)
[2019-06-07] MEDS ORDERED: VANCOMYCIN 1 G PREMIX 200 ML IV ONE (10:30)
[2019-06-07] MEDS ORDERED: IPRATROPIUM/ALBUTEROL 0.5-3(2.5)MG/3ML NEB NEB PRN (12:30)
[2019-06-07] MEDS ORDERED: MAGNESIUM/ALUMINUM HYDROXIDE/SIMETHICONE 30ML UDC PO PRN (12:30)
[2019-06-07] MEDS ORDERED: NITROGLYCERIN 0.4MG TABLET SL SL PRN (12:30)
[2019-06-07] MEDS ORDERED: DIPHENHYDRAMINE 50MG/ML VIAL IV PRN (12:30)
[2019-06-07] MEDS ORDERED: PIPERACILLIN/TAZ 3.375G PREMIX 50 ML IV SCH (12:30)
[2019-06-07] MEDS ORDERED: GUAIFENESIN 200MG/10ML SUGAR FREE UDC PO PRN (12:30)
[2019-06-07] MEDS ORDERED: ONDANSETRON HCL 4MG/2ML INJ IV PRN (12:30)
[2019-06-07] MEDS ORDERED: MORPHINE SULFATE 2 MG/ML CPJ (NOT FOR IM USE) IV PRN (12:30)
[2019-06-07] MEDS ORDERED: CLONIDINE 0.1MG TABLET PO PRN (12:30)
[2019-06-07] MEDS ORDERED: ACETAMINOPHEN 325MG TABLET PO PRN (12:30)
[2019-06-07] MEDS ORDERED: DOCUSATE SODIUM 100MG CAPSULE PO PRN (12:30)
[2019-06-07] MEDS ORDERED: DILTIAZEM HCL 5MG/ML 5ML VIAL IV ONE (12:30)
[2019-06-07 14:59] LABS: CREATINE KINASE MB FRACTION 4.3 ng/mL (0.5-3.6)
[2019-06-07] MEDS: AMIODARONE HCL 200 MG TABLET PO SCH (15:18)
[2019-06-07] MEDS: PIPERACILLIN/TAZOBACTAM 2.25 G in DEXTROSE 5% WATER 50 ML IV SCH ×2 (17:00→23:28)
[2019-06-07] MEDS: SEVELAMER CARBONATE 800 MG TABLET PO SCH (17:20)
[2019-06-07] MEDS: APIXABAN 2.5 MG TABLET PO SCH (18:00)
[2019-06-07] MEDS: CARVEDILOL 3.125 MG TABLET PO SCH (18:00)
[2019-06-07] MEDS ORDERED: ZOLPIDEM TARTRATE 5MG TABLET PO PRN (21:00)
[2019-06-07] MEDS: ASCORBIC ACID 500 MG TABLET PO SCH (21:39)
[2019-06-07] MEDS: FAMOTIDINE 20MG TABLET PO SCH (21:39)
[2019-06-08] VITALS (12 sets, daily range): BP systolic 90–142; BP diastolic 38–64
[2019-06-08 00:54] LABS: CREATINE KINASE MB FRACTION 5.3 ng/mL (0.5-3.6)
[2019-06-08] MEDS: PIPERACILLIN/TAZOBACTAM 2.25 G in DEXTROSE 5% WATER 50 ML IV SCH ×2 (05:45→18:01)
[2019-06-08] MEDS: APIXABAN 2.5 MG TABLET PO SCH ×2 (05:46→18:04)
[2019-06-08] MEDS: CARVEDILOL 3.125 MG TABLET PO SCH ×2 (05:48→18:05)
[2019-06-08] MEDS: SEVELAMER CARBONATE 800 MG TABLET PO SCH ×4 (07:20→18:04)
[2019-06-08] MEDS: ASPIRIN 81MG EC TABLET PO SCH ×3 (08:02→09:45)
[2019-06-08] MEDS: FOLIC ACID/VITAMIN B COMP W-C TABLET PO SCH ×3 (08:02→09:45)
[2019-06-08] MEDS: ASCORBIC ACID 500 MG TABLET PO SCH ×3 (08:02→20:29)
[2019-06-08] MEDS: ZINC SULFATE 220 MG ( 50 ) CAPSULE PO SCH ×3 (08:02→09:45)
[2019-06-08] MEDS: AMIODARONE HCL 200 MG TABLET PO SCH ×3 (08:03→09:45)
[2019-06-08] MEDS ORDERED: VANCOMYCIN 1 G PREMIX 200 ML IV NR (12:00)
[2019-06-08] MEDS ORDERED: COR6 PO (18:22)
[2019-06-08] MEDS ORDERED: HYDR-4135 PO (18:22)
[2019-06-08] MEDS: TRAMADOL 50MG TABLET PO PRN (18:25)
[2019-06-08 19:06] LABS: HEMATOCRIT. 28.4 % (36.0-48.0); HEMOGLOBIN. 9.3 g/dL (12.0-16.0); MEAN CORPUSCULAR VOLUME 106.8 fL (81.0-99.0); MEAN PLATELET VOLUME 9.3 fl (7.4-10.4); PLATELET 152 x1000/uL (130-400); RED BLOOD CELL COUNT 2.66 mill/uL (4.2-5.4); RED CELL DISTRIBUTION WIDTH 15.7 % (11.6-14.6)
[2019-06-08 19:26] LABS: CHLORIDE 100 mEq/L (98-107)
[2019-06-08 19:35] LABS: CREATINE KINASE 142 IU/L (26-192); CREATINE KINASE MB FRACTION 3.5 ng/mL (0.5-3.6)
[2019-06-08 19:38] LABS: T4 FREE 1.23 ng/dL (0.76-1.46)
[2019-06-08 20:11] LABS: PLATELET ESTIMATE NORMAL
[2019-06-08] MEDS: FAMOTIDINE 20MG TABLET PO SCH (20:29)
[2019-06-09] VITALS (12 sets, daily range): BP systolic 86–137; BP diastolic 42–68
[2019-06-09] MEDS: CARVEDILOL 3.125 MG TABLET PO SCH ×2 (05:24→18:00)
[2019-06-09] MEDS: PIPERACILLIN/TAZOBACTAM 2.25 G in DEXTROSE 5% WATER 50 ML IV SCH ×2 (05:32→18:00)
[2019-06-09] MEDS: APIXABAN 2.5 MG TABLET PO SCH ×2 (06:13→18:00)
[2019-06-09] MEDS: ASPIRIN 81MG EC TABLET PO SCH (08:36)
[2019-06-09] MEDS: ASCORBIC ACID 500 MG TABLET PO SCH ×2 (08:37→21:00)
[2019-06-09] MEDS: ZINC SULFATE 220 MG ( 50 ) CAPSULE PO SCH (08:37)
[2019-06-09] MEDS: FOLIC ACID/VITAMIN B COMP W-C TABLET PO SCH (08:37)
[2019-06-09] MEDS: AMIODARONE HCL 200 MG TABLET PO SCH (08:37)
[2019-06-09] MEDS: SEVELAMER CARBONATE 800 MG TABLET PO SCH ×3 (08:37→17:20)
[2019-06-09] MEDS ORDERED: HALOPERIDOL LACTATE 5MG/ML VIAL IM PRN (09:45)
[2019-06-09] MEDS: FAMOTIDINE 20MG TABLET PO SCH (21:00)
[2019-06-10] VITALS (11 sets, daily range): BP systolic 99–122; BP diastolic 39–63
[2019-06-10] MEDS: CARVEDILOL 3.125 MG TABLET PO SCH ×2 (06:00→17:10)
[2019-06-10] MEDS: PIPERACILLIN/TAZOBACTAM 2.25 G in DEXTROSE 5% WATER 50 ML IV SCH ×2 (06:00→17:10)
[2019-06-10] MEDS: APIXABAN 2.5 MG TABLET PO SCH ×2 (06:00→17:10)
[2019-06-10] MEDS: FOLIC ACID/VITAMIN B COMP W-C TABLET PO SCH (08:40)
[2019-06-10] MEDS: ASPIRIN 81MG EC TABLET PO SCH (08:40)
[2019-06-10] MEDS: ASCORBIC ACID 500 MG TABLET PO SCH ×2 (08:40→21:00)
[2019-06-10] MEDS: ZINC SULFATE 220 MG ( 50 ) CAPSULE PO SCH (08:40)
[2019-06-10] MEDS: AMIODARONE HCL 200 MG TABLET PO SCH (08:40)
[2019-06-10] MEDS: SEVELAMER CARBONATE 800 MG TABLET PO SCH ×3 (08:40→17:10)
[2019-06-10] MEDS: FAMOTIDINE 20MG TABLET PO SCH (21:00)
[2019-06-11] VITALS (9 sets, daily range): BP systolic 118–138; BP diastolic 57–80
[2019-06-11] MEDS: PIPERACILLIN/TAZOBACTAM 2.25 G in DEXTROSE 5% WATER 50 ML IV SCH (05:45)
[2019-06-11] MEDS: CARVEDILOL 3.125 MG TABLET PO SCH (06:00)
[2019-06-11] MEDS: APIXABAN 2.5 MG TABLET PO SCH (06:18)
[2019-06-11] MEDS: TRAMADOL 50MG TABLET PO PRN ×2 (06:33→16:14)
[2019-06-11] MEDS: AMIODARONE HCL 200 MG TABLET PO SCH (09:18)
[2019-06-11] MEDS: ASPIRIN 81MG EC TABLET PO SCH (09:18)
[2019-06-11] MEDS: FOLIC ACID/VITAMIN B COMP W-C TABLET PO SCH (09:18)
[2019-06-11] MEDS: SEVELAMER CARBONATE 800 MG TABLET PO SCH ×2 (09:19→12:20)
[2019-06-11] MEDS: ZINC SULFATE 220 MG ( 50 ) CAPSULE PO SCH (09:19)
[2019-06-11] MEDS: ASCORBIC ACID 500 MG TABLET PO SCH (09:19)
[2019-06-14] MEDS ORDERED: LEVO500T2 MT (13:02)
== END 2019-06-11 17:35 | disposition hospice, home (50) | DRG 871 ==
LOC: ER 08:52 → EDBEDREQ 09:29 → 3WST 10:39 → EDBEDREQ 10:47 → EDBEDREQSVC 10:47 → ENRESERV 13:15 → 3WST 06-10 18:05
PROVIDERS: ADMIT Internal Medicine; ATTEND Internal Medicine
PROC: 5A1D70Z Performance of Urinary Filtration, Intermittent, Less than 6 Hours Per Day (ICD-10-PCS; principal; 2019-06-07)
PROC: 5A1D70Z Performance of Urinary Filtration, Intermittent, Less than 6 Hours Per Day (ICD-10-PCS; 2019-06-09)
DX: A41.9 Sepsis, unspecified organism (principal); I21.4 Non-ST elevation (NSTEMI) myocardial infarction; N18.6 End stage renal disease; I13.2 Hypertensive heart and chronic kidney disease with heart failure and with stage 5 chronic kidney disease, or end stage renal disease; I50.30 Unspecified diastolic (congestive) heart failure; G93.40 Encephalopathy, unspecified; I47.1 Supraventricular tachycardia; M48.56XA Collapsed vertebra, not elsewhere classified, lumbar region, initial encounter for fracture; R65.20 Severe sepsis without septic shock; D63.8 Anemia in other chronic diseases classified elsewhere; E87.5 Hyperkalemia; I48.0 Paroxysmal atrial fibrillation; M54.9 Dorsalgia, unspecified; I95.3 Hypotension of hemodialysis; R53.81 Other malaise; Z60.2 Problems related to living alone; S52.021A Displaced fracture of olecranon process without intraarticular extension of right ulna, initial encounter for closed fracture; W18.39XA Other fall on same level, initial encounter; I25.10 Atherosclerotic heart disease of native coronary artery without angina pectoris; Z51.5 Encounter for palliative care; Z99.2 Dependence on renal dialysis; Z79.899 Other long term (current) drug therapy; Z79.82 Long term (current) use of aspirin; Z95.5 Presence of coronary angioplasty implant and graft; Y93.89 Activity, other specified; Y92.89 Other specified places as the place of occurrence of the external cause; Y99.8 Other external cause status
CPT/HCPCS: 36415; 71045; 72100; 72170; 74176; 80061; 80202; 82140; 82550; 82553; 82962; 83036; 83605; 83880; 84439; 84443; 84484; 85379; 93005; 93306; 93970; 96365; 96368; 96375; 99291; J1815; J2270; J2405; J2543; J3370; J3490; J7030; J7040; J7060; Q0163; A4315